=== PATIENT | male | born 1995 | race Hispanic/Latino ===

== ENCOUNTER 2018-11-30 00:24 | Emergency (ER) | payer OTHER, SELFPAY ==
[2018-11-30] MEDS ORDERED: TETANUS & DIPHTHERIA TOX,ADULT 0.5 ML VIAL ONE (00:43)
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
[2018-11-30] MEDS ORDERED: CEPHALEXIN 250 MG CAP ONE (04:01)
[2018-11-30 04:20] VITALS: O2SAT 99
[2018-11-30 04:26] VITALS: BP 119/72; TEMP 98
--- NOTE | 2018-11-30 08:35 | RAD REPORT ---
EXAM DESCRIPTION: RAD - Wrist Left 3 View - 11/30/2018 3:42 am CLINICAL HISTORY: Fall, left wrist pain COMPARISON: None. FINDINGS: No fracture is identified. There is no dislocation or periosteal reaction noted. No foreig n body or other soft tissue abnormality. IMPRESSION: Negative left wrist examination.
--- NOTE | 2018-11-30 08:36 | RAD REPORT ---
EXAM DESCRIPTION: RAD - Wrist Right 3 View - 11/30/2018 3:40 am CLINICAL HISTORY: Fall, right wrist pain COMPARISON: None. FINDINGS: No fracture is identified. Appearance of the scaphoid bone is not outside of normal range. There is no dislocation or periosteal reaction noted. Epiphyses and growth plates are Normal in appe arance. No foreign body or other soft tissue abnormality. IMPRESSION: Negative right wrist examination. Repeat imaging in 7 days could be performed if the patient has continued symptoms concerning for frac ture.
--- NOTE | 2018-11-30 12:35 | RAD REPORT ---
EXAM DESCRIPTION: CT - Head C Spine Mpr Wo Con - 11/30/2018 4:25 am CLINICAL HISTORY: The patient is 23 years old and is Male; fall TECHNIQUE: Axial computed tomography images of the head/brain and cervical spine without intravenous contrast. Sagittal and coronal reformatted images were created and reviewed. This CT exam was pe rformed using one or more of the following dose reduction techniques: automated exposure control, a djustment of the mA and/or kV according to patient size, and/or use of iterative reconstruction techn ique. COMPARISON: No relevant prior studies available. FINDINGS: BRAIN: Unremarkable. No hemorrhage. No significant white matter disease. No edema. VENTRICLES: Unremarkable. No ventriculomegaly. SKULL: No acute fracture. SINUSES: Unremarkable as visualized. No acute sinusitis. MASTOID AIR CELLS: Unremarkable as visualized. No mastoid effusion. VERTEBRAE: The vertebral body heights and alignment are maintained. No acute fracture. DISCS/SPINAL CANAL/NEURAL FORAMINA: The intervertebral disc spaces are maintained. No spinal can al stenosis. SOFT TISSUES: Right facial soft tissue swelling is present. LUNG APICES: The lung apices are clear. IMPRESSION: 1. No acute intracranial findings. 2. No fracture or malalignment of the cervical spine. Electronically signed by: Rosita Barboza MD 11/30/2018 1:53 AM CDT Due to temporary technical issues with the PACS/Fluency reporting system, reports are being signed by the in house radiologist as a courtesy to ensure prompt reporting. The interpreting radiologist is f ully responsible for the content of the report.
--- NOTE | 2018-11-30 12:36 | RAD REPORT ---
EXAM DESCRIPTION: CT - Thorax Terry Downs - 11/30/2018 4:24 am CLINICAL HISTORY: The patient is 23 years old and is Male; fall TECHNIQUE: Axial computed tomography images of the chest without intravenous contrast. Sagittal an d coronal reformatted images were created and reviewed. This CT exam was performed using one or mor e of the following dose reduction techniques: automated exposure control, adjustment of the mA and/ or kV according to patient size, and/or use of iterative reconstruction technique. COMPARISON: No relevant prior studies available. FINDINGS: LUNGS: The lungs are clear of focal opacity, mass, or consolidation. PLEURAL SPACE: Unremarkable. No pneumothorax. No significant effusion. HEART: No cardiomegaly. No pericardial effusion. BONES/JOINTS: No acute fractures the visualized axial and appendicular skeleton. Mild irregularity of the endplates is noted. SOFT TISSUES: The soft tissues are normal. VASCULATURE: Unremarkable. No thoracic aortic aneurysm. LYMPH NODES: Unremarkable. No enlarged lymph nodes. IMPRESSION: No evidence of solid organ injury or traumatic bony findings on this noncontrasted CT of the chest. Electronically signed by: Rosita Barboza MD 11/30/2018 1:45 AM CDT Due to temporary technical issues with the PACS/Fluency reporting system, reports are being signed by the in house radiologist as a courtesy to ensure prompt reporting. The interpreting radiologist is jackelyn pink responsible for the content of the report.
--- NOTE | 2018-11-30 12:38 | RAD REPORT ---
EXAM DESCRIPTION: CT - Facial Bones W/ Mpr - 11/30/2018 4:24 am CLINICAL HISTORY: The patient is 23 years old and is Male; fall TECHNIQUE: Axial computed tomography images of the face with intravenous contrast. Sagittal and co simba reformatted images were created and reviewed. This CT exam was performed using one or more of the following dose reduction techniques: automated exposure control, adjustment of the mA and/or k V according to patient size, and/or use of iterative reconstruction technique. COMPARISON: No relevant prior studies available. FINDINGS: BONES/JOINTS: The orbital floors and curiel are intact. The zygomatic arches and pteryg oid plates are intact. The visualized maxilla and mandible are intact. SOFT TISSUES: Right facial soft tissue swelling is present. ORBITS: The globes, extraocular muscles, and optic nerve complexes are within normal limits. SINUSES: The visualized paranasal sinuses are clear. No air-fluid levels. NASAL CAVITY/SEPTUM: The nasal bones are intact. IMPRESSION: Right facial soft tissue swelling without underlying acute bony abnormality. Electronically signed by: Rosita Barboza MD 11/30/2018 1:48 AM CDT Due to temporary technical issues with the PACS/Fluency reporting system, reports are being signed by the in house radiologist as a courtesy to ensure prompt reporting. The interpreting radiologist is f onesimoly responsible for the content of the report.
== END 2018-11-30 04:16 | disposition home or self-care (01) ==
LOC: ER 00:24
DX: S09.90XA Unspecified injury of head, initial encounter (principal); S01.81XA Laceration without foreign body of other part of head, initial encounter; S03.2XXA Dislocation of tooth, initial encounter; S60.812A Abrasion of left wrist, initial encounter; S60.811A Abrasion of right wrist, initial encounter; S80.212A Abrasion, left knee, initial encounter; S80.211A Abrasion, right knee, initial encounter; Y09 Assault by unspecified means; Y93.02 Activity, running; Y92.9 Unspecified place or not applicable; Z23 Encounter for immunization
CPT/HCPCS: 70450; 70486; 71250; 72125; 76377; 90714; 99285

== ENCOUNTER 2020-02-07 00:19 | Emergency (ER) | payer SELFPAY ==
--- OUTSIDE RECORDS SUMMARY | 2020-02-07 00:22 | XMS REPORT | Continuity of Care Document ---
:[address] [facility] t Address [address] [place] [address] Dr. Solitario [address] [place] [id number] Care Team Providers Name Role Phone Unavailable Unavailable Unavailable Problems This patient has no known problems. Allergies, Adverse Reactions, Alerts This patient has no known allergies or adverse reactions. Medications This patient has no known medications. Procedures This patient has no known procedures. Results This patient has no known results.
[2020-02-07 01:12] LABS: Urine Culture Reflex Order NOT NEEDED
[2020-02-07 01:13] LABS: Urine Blood 2+ (NEG); Urine Glucose NEGATIVE (NEG); Urine Protein 1+ (NEG); Urine Specific Gravity 1.025 (1.005-1.030)
[2020-02-07 01:14] LABS: Urine Bacteria <20 /HPF (NONE SEEN)
--- NOTE | 2020-02-07 01:51 | ER ---
Nurse's Notes [facility] Name: Chris Ibarra Age: 24 yrs Sex: Male : 1995 Arrival Date: 02/07/2020 Time: 00:21 Bed 4 Private MD: Diagnosis: Urethral discharge;Urinary tract infection, site not specified Presentation: 02/06 00:32 Chief complaint: Patient states: Urinating blood, first episode 30 min ago; States "it lp1 cochran"; States burning with urination the past 2 days, blood in urine today. Coronavirus screen: Patient denies a cough. Patient denies shortness of breath or difficulty breathing. Patient denies measured and/or subjective temperature greater than 100.4F prior to today's visit. Patient denies travel on a cruise ship or to a country the [facility] currently lists as an affected area. Patient denies contact with known and/or suspected case of COVID-19. Ebola Screen: No symptoms or risks identified at this time. Initial Sepsis Screen: Does the patient meet any 2 criteria? No. Patient's initial sepsis screen is negative. Does the patient have a suspected source of infection? No. Patient's initial sepsis screen is negative. Risk Assessment: Do you want to hurt yourself or someone else? Patient reports no desire to harm self or others. Onset of symptoms was February 07, 2020 at 00:00. 00:32 Method Of Arrival: Ambulatory lp1 00:32 Acuity: ERIC 4 lp1 Historical: - Allergies: 00:38 No Known Allergies; lp1 - Home Meds: 00:38 None [Active]; lp1 - PMHx: 00:38 None; lp1 - PSHx: 00:38 Reconstruction of intestine; lp1 - Immunization history:: Adult Immunizations up to date. - Social history:: Smoking status: Patient reports the use of cigarette tobacco products, denies chronic smoking, but will smoke occasionally. - Family history:: not pertinent. Screenin:38 Abuse screen: Denies threats or abuse. Denies injuries from another. Nutritional lp1 screening: No deficits noted. Tuberculosis screening: No symptoms or risk factors identified. Fall Risk None identified. Assessment: 01:30 General: Appears comfortable, Behavior is calm, cooperative. rv 01:30 Pain: Denies pain. Neuro: Level of Consciousness is awake, alert, obeys commands, rv Oriented to person, place, time, situation. Cardiovascular: Patient's skin is warm and dry. Respiratory: Airway is patent Respiratory effort is even, unlabored. : Reports burning with urination, urinary frequency. Derm: Skin is intact. Vital Signs: 00:32 BP 143 / 93; Pulse 85; Resp 18; Temp 98.4(O); Pulse Ox 100% on R/A; Weight 70.31 kg lp1 (R); Height 5 ft. 5 in. (165.10 cm); 00:32 Body Mass Index 25.79 (70.31 kg, 165.10 cm) lp1 ED Course: 00:21 Patient arrived in ED. cl3 00:37 Triage completed. lp1 00:38 Arm band placed on. lp1 00:39 Ilir Lees, DANIS is Primary Nurse. rv 01:14 Joby Muro MD is Attending Physician. francine 01:30 Patient has correct armband on for positive identification. Pulse ox on. NIBP on. rv 02:14 No provider procedures requiring assistance completed. Patient did not have IV access rv during this emergency room visit. Administered Medications: 02:13 Drug: Rocephin (cefTRIAXone) 1 grams Route: IM; Site: left deltoid; rv 02:13 Follow up: Response: Medication administered at discharge. rv 02:13 Drug: Zithromax 1 grams Route: PO; rv 02:13 Follow up: Response: Medication administered at discharge. rv 02:13 Drug: Doxycycline 100 mg Route: PO; rv 02:13 Follow up: Response: Medication administered at discharge. rv Outcome: 01:51 Discharge ordered by . francine 02:15 Discharged to home ambulatory. rv 02:15 Condition: good 02:15 Discharge instructions given to patient, Instructed on discharge instructions, follow up and referral plans. medication usage, Demonstrated understanding of instructions, follow-up care, medications, Prescriptions given X 2. 02:15 Patient left the ED. rv Signatures: Joby Muro MD MD cha Pena, Laura, RN RN lp1 Ilir Lees RN RN rv Lewis, Charde cl3
--- NOTE | 2020-02-07 01:51 | EDPHYS ---
Physician Documentation [facility] Name: Chris Ibarra Age: 24 yrs Sex: Male : 1995 Arrival Date: 02/07/2020 Time: 00:21 Bed 4 Private MD: Joby Hernandes HPI: 02/06 01:46 This 24 yrs old Male presents to ER via Ambulatory with complaints of francine Urinating Blood. 01:46 The patient presents with tenderness, urinary symptoms, dribbling of urine, dysuria, francine urinary frequency, constant. Onset: The symptoms/episode began/occurred 2 day(s) ago. Modifying factors: The symptoms are alleviated by nothing, the symptoms are aggravated by urinating, sexual intercourse. Associated signs and symptoms: The patient has no apparent associated signs or symptoms. The patient has not experienced similar symptoms in the past. Historical: - Allergies: 00:38 No Known Allergies; lp1 - Home Meds: 00:38 None [Active]; lp1 - PMHx: 00:38 None; lp1 - PSHx: 00:38 Reconstruction of intestine; lp1 - Immunization history:: Adult Immunizations up to date. - Social history:: Smoking status: Patient reports the use of cigarette tobacco products, denies chronic smoking, but will smoke occasionally. - Family history:: not pertinent. ROS: 01:46 Constitutional: Negative for fever, chills, and weight loss, Eyes: Negative for injury, francine pain, redness, and discharge, ENT: Negative for injury, pain, and discharge, Neck: Negative for injury, pain, and swelling, Cardiovascular: Negative for chest pain, palpitations, and edema, Respiratory: Negative for shortness of breath, cough, wheezing, and pleuritic chest pain, Abdomen/GI: Negative for abdominal pain, nausea, vomiting, diarrhea, and constipation, Back: Negative for injury and pain, MS/Extremity: Negative for injury and deformity, Skin: Negative for injury, rash, and discoloration, Neuro: Negative for headache, weakness, numbness, tingling, and seizure, Psych: Negative for depression, anxiety, suicide ideation, homicidal ideation, and hallucinations, Allergy/Immunology: Negative for hives, rash, and allergies, Endocrine: Negative for neck swelling, polydipsia, polyuria, polyphagia, and marked weight changes, Hematologic/Lymphatic: Negative for swollen nodes, abnormal bleeding, and unusual bruising. 01:46 : Positive for urinary symptoms, urinary frequency, hematuria, difficulty urinating, penile discharge, penile pain. Exam: 01:46 Constitutional: This is a well developed, well nourished patient who is awake, alert, francine and in no acute distress. Head/Face: Normocephalic, atraumatic. Eyes: Pupils equal round and reactive to light, extra-ocular motions intact. Lids and lashes normal. Conjunctiva and sclera are non-icteric and not injected. Cornea within normal limits. Periorbital areas with no swelling, redness, or edema. ENT: Nares patent. No nasal discharge, no septal abnormalities noted. Tympanic membranes are normal and external auditory canals are clear. Oropharynx with no redness, swelling, or masses, exudates, or evidence of obstruction, uvula midline. Mucous membranes moist. Neck: Trachea midline, no thyromegaly or masses palpated, and no cervical lymphadenopathy. Supple, full range of motion without nuchal rigidity, or vertebral point tenderness. No Meningismus. Chest/axilla: Normal chest wall appearance and motion. Nontender with no deformity. No lesions are appreciated. Cardiovascular: Regular rate and rhythm with a normal S1 and S2. No gallops, murmurs, or rubs. Normal PMI, no JVD. No pulse deficits. Respiratory: Lungs have equal breath sounds bilaterally, clear to auscultation and percussion. No rales, rhonchi or wheezes noted. No increased work of breathing, no retractions or nasal flaring. Abdomen/GI: Soft, non-tender, with normal bowel sounds. No distension or tympany. No guarding or rebound. No evidence of tenderness throughout. Back: No spinal tenderness. No costovertebral tenderness. Full range of motion. Skin: Warm, dry with normal turgor. Normal color with no rashes, no lesions, and no evidence of cellulitis. MS/ Extremity: Pulses equal, no cyanosis. Neurovascular intact. Full, normal range of motion. Neuro: Awake and alert, GCS 15, oriented to person, place, time, and situation. Cranial nerves II-XII grossly intact. Motor strength 5/5 in all extremities. Sensory grossly intact. Cerebellar exam normal. Normal gait. Psych: Awake, alert, with orientation to person, place and time. Behavior, mood, and affect are within normal limits. 01:46 : CVA tenderness, is absent, Male external genitalia: normal, Circumcision noted. penile discharge, purulent, Bladder: is normal, Sexual behavior: the patient is sexually active, and reports multiple partners. Vital Signs: 00:32 BP 143 / 93; Pulse 85; Resp 18; Temp 98.4(O); Pulse Ox 100% on R/A; Weight 70.31 kg lp1 (R); Height 5 ft. 5 in. (165.10 cm); 00:32 Body Mass Index 25.79 (70.31 kg, 165.10 cm) lp1 MDM: 01:15 Patient medically screened. francine 01:48 Data reviewed: vital signs, nurses notes, lab test result(s). Data interpreted: Cardiac francine monitor: not applicable for this patient encounter. Pulse oximetry: on room air is 100 %. Counseling: I had a detailed discussion with the patient and/or guardian regarding: the historical points, exam findings, and any diagnostic results supporting the discharge/admit diagnosis, lab results, the need for outpatient follow up, for definitive care, a family practitioner. Response to treatment: the patient's symptoms have mildly improved after treatment. ED course: sex with multiple girls, now with urethral dc. 02/06 00:49 Order name: Urine Microscopic Only lp1 02/06 00:49 Order name: Urine Culture lp1 02/06 00:50 Order name: Urine Microscopic Only; Complete Time: 01:44 EDMS 02/06 00:51 Order name: Urine Dipstick--Ancillary (enter results); Complete Time: 01:44 lp1 02/06 00:49 Order name: Urine Dipstick-Ancillary (obtain specimen); Complete Time: 00:51 lp1 Administered Medications: 02:13 Drug: Rocephin (cefTRIAXone) 1 grams Route: IM; Site: left deltoid; rv 02:13 Follow up: Response: Medication administered at discharge. rv 02:13 Drug: Zithromax 1 grams Route: PO; rv 02:13 Follow up: Response: Medication administered at discharge. rv 02:13 Drug: Doxycycline 100 mg Route: PO; rv 02:13 Follow up: Response: Medication administered at discharge. rv Disposition: 02/07/20 01:51 Discharged to Home. Impression: Urethral discharge, Urinary tract infection, site not specified. - Condition is Stable. - Discharge Instructions: Dysuria, Sexually Transmitted Disease, Sexually Transmitted Disease, Agch-qu-Uptx, Urinary Tract Infection, Adult, Urinary Tract Infection, Adult, [place]-ca-Puph, Safe Sex. - Prescriptions for Doxycycline Hyclate 100 mg Oral Tablet - take 1 tablet by ORAL route every 12 hours; 20 tablet. Cipro 500 mg Oral Tablet - take 1 tablet by ORAL route every 12 hours for 7 days; 14 tablet. - Medication Reconciliation Form, Thank You Letter, Antibiotic Education, Prescription Opioid Use form. - Follow up: Private Physician; When: 2 - 3 days; Reason: Recheck today's complaints, Continuance of care, Re-evaluation by your physician. - Problem is new. - Symptoms have improved. Signatures: Dispatcher [employer] EDJoby Benton MD MD cha Pena, Laura, RN RN lp1 Ilir Lees RN RN rv Corrections: (The following items were deleted from the chart) 02:15 01:51 02/07/2020 01:51 Discharged to Home. Impression: Urethral discharge; Urinary rv tract infection, site not specified. Condition is Stable. Forms are Medication Reconciliation Form, Thank You Letter, Antibiotic Education, Prescription Opioid Use. Follow up: Private Physician; When: 2 - 3 days; Reason: Recheck today's complaints, Continuance of care, Re-evaluation by your physician. Problem is new. Symptoms have improved. francine
[2020-02-07 02:19] VITALS: BP 143/93; TEMP 98.4; O2SAT 100
== END 2020-02-07 02:15 | disposition home or self-care (01) ==
LOC: ER 00:19
DX: N39.0 Urinary tract infection, site not specified (principal); R36.9 Urethral discharge, unspecified; F17.210 Nicotine dependence, cigarettes, uncomplicated
CPT/HCPCS: 81003; 81015; 87086; 87088; 96372; 99283

== ENCOUNTER 2021-03-28 16:19 | Emergency (ER) | payer SELFPAY ==
--- OUTSIDE RECORDS SUMMARY | 2021-03-28 16:21 | XMS REPORT | Continuity of Care Document ---
:1995 Author Organization [facility] t Address [address] [place] [address] Dr. Solitario [address] [place] [id number] Care Team Providers Name Role Phone Unavailable Unavailable Unavailable Problems This patient has no known problems. Allergies, Adverse Reactions, Alerts This patient has no known allergies or adverse reactions. Medications This patient has no known medications. Procedures This patient has no known procedures. Results This patient has no known results.
== END 2021-03-28 17:43 | disposition left against medical advice (07) ==
LOC: ER 16:19
DX: Z02.9 Encounter for administrative examinations, unspecified (principal)

== ENCOUNTER 2022-04-07 13:47 | Emergency (ER) | payer SELFPAY ==
--- OUTSIDE RECORDS SUMMARY | 2022-04-07 13:50 | XMS REPORT | Continuity of Care Document ---
:1995 Author Organization [facility] t Address [address] [place] [address] Dr. Solitario [address] [place] [address] Care Team Providers Name Role Phone Unavailable Unavailable Unavailable Problems This patient has no known problems. Allergies, Adverse Reactions, Alerts This patient has no known allergies or adverse reactions. Medications This patient has no known medications. Procedures This patient has no known procedures. Results This patient has no known results.
[2022-04-07 14:38] LABS: Urine Blood Negative (Negative); Urine Glucose Negative (Negative); Urine Protein 2+ (Negative)
[2022-04-07 15:03] LABS: Albumin 4.2 g/dL (3.4-5.0); Bilirubin Total 0.6 mg/dL (0.2-1.0); Potassium 3.6 mmol/L (3.5-5.1); Protein, Total 8.5 g/dL (6.4-8.2)
[2022-04-07] MEDS ORDERED: NA CHLORIDE 0.9% 1,000 ML ONE (15:27)
[2022-04-07] MEDS ORDERED: ONDANSETRON 4 MG/2 ML VIAL ONE (15:27)
--- NOTE | 2022-04-07 15:59 | RAD REPORT ---
EXAM DESCRIPTION: CTAbdomen Pelvis W Contrast - 04/07/2022 3:47 pm CLINICAL HISTORY: Abdominal pain. vomiting, abdominal pain COMPARISON: CT ABD PELVIS W CONTRAST dated 04/01/2009 TECHNIQUE: Biphasic CT imaging of the abdomen and pelvis was performed with 100 ml non-ionic IV cont rast. All CT scans are performed using dose optimization technique as appropriate and may include automated exposure control or mA/KV adjustment according to patient size. FINDINGS: The lung bases are clear. The liver demonstrates diffuse fatty infiltration. Spleen, pancreas, adrenal glands and kidneys are w ithin normal limits. No bowel obstruction, free air, free fluid or abscess. The appendix is normal. No evidence of signi ficant lymphadenopathy. No suspicious bony findings. IMPRESSION: No acute intra-abdominal or pelvic finding. Mild fatty liver.
[2022-04-07 16:10] LABS: Absolute Lymphocytes (CBC) 1.5 K/uL (0.7-4.9); Lymphocytes % 20.3 % (15.3-44.8); MCV 88.4 fL (80-100); MPV 8.9 fL (7.6-11.3); RBC Red Blood Cell Count 5.32 M/uL (4.33-5.43)
[2022-04-07] MEDS ORDERED: CEFTRIAXONE 1000 MG/VIAL ONE (16:52)
[2022-04-08 00:46] VITALS: BP 142/105; TEMP 97.1; O2SAT 100
--- NOTE | 2022-04-08 10:22 | ER ---
Nurse's Notes [facility] Name: Chris Ibarra Age: 26 yrs Sex: Male : 1995 Arrival Date: 04/07/2022 Time: 13:50 Bed 27 Private MD: Diagnosis: Vomiting;Diarrhea, unspecified Presentation: 04/07 13:59 Chief complaint: Patient states: epigastric pain since this morning, vomiting with 3 streaks of blood. 13:59 Method Of Arrival: Ambulatory [facility] 14:02 Coronavirus screen: Vaccine status: Patient reports being unvaccinated. Ebola Screen: [facility] No symptoms or risks identified at this time. Initial Sepsis Screen: Does the patient meet any 2 criteria? No. Patient's initial sepsis screen is negative. Does the patient have a suspected source of infection? No. Patient's initial sepsis screen is negative. Risk Assessment: Do you want to hurt yourself or someone else? Patient reports no desire to harm self or others. Onset of symptoms was April 07, 2022. 14:02 Acuity: ERIC 3 3 Triage Assessment: 14:05 General: Appears distressed, uncomfortable, Behavior is cooperative, appropriate for [facility] age, restless. Pain: Complains of pain in epigastric area Pain does not radiate. Pain currently is 10 out of 10 on a pain scale. Quality of pain is described as sharp, Pain began 1 day ago. Is intermittent. Neuro: Level of Consciousness is awake, alert, obeys commands, Oriented to person, place, time, situation. Cardiovascular: Capillary refill < 3 seconds Patient's skin is warm and dry. Respiratory: Airway is patent Respiratory effort is even, unlabored. GI: Abdomen is flat, non-distended, Reports upper abdominal pain, diarrhea, rectal bleeding, epigastric pain, tolerance of fluids, tolerance of food. : Reports inability to void, since yesterday. Historical: - Allergies: 14:04 No Known Allergies; 3 - Home Meds: 14:04 None [Active]; eh3 - PMHx: 14:04 None; 3 - PSHx: 14:05 abdominal surgery in 2009; 3 - Immunization history:: Adult Immunizations up to date. - Social history:: Smoking status: Patient reports the use of cigarette tobacco products, smokes one pack cigarettes per day. Patient uses alcohol, on a daily basis. street drugs, marijuana. Screenin:32 Abuse screen: Denies threats or abuse. Denies injuries from another. Nutritional quintana screening: No deficits noted. Tuberculosis screening: No symptoms or risk factors identified. Fall Risk None identified. Assessment: 15:32 General: Appears in no apparent distress. Behavior is calm, cooperative. GI: Abdomen is quintana non-distended, Bowel sounds present X 4 quads. Abd is soft and non tender Reports nausea, Pain is 6 out of 10 on a pain scale. Vital Signs: 14:02 BP 142 / 105; Pulse 88; Resp 18; Temp 97.1; Pulse Ox 100% on R/A; Weight 70.31 kg; eh3 Height 5 ft. 5 in. (165.10 cm); Pain 8/10; 14:02 Body Mass Index 25.79 (70.31 kg, 165.10 cm) 3 ED Course: 13:50 Patient arrived in ED. mr 13:56 Mehdi Mukherjee PA is PHCP. m 13:56 Joby Muro MD is Attending Physician. [facility] 14:04 Triage completed. 3 14:05 Arm band placed on right wrist. 3 14:10 Inserted saline lock: 20 gauge in right antecubital area, using aseptic technique. 3 Blood collected. 15:09 Ene Hall, RN is Primary Nurse. quintana 15:32 Patient has correct armband on for positive identification. Bed in low position. quintana 15:32 No provider procedures requiring assistance completed. quintana 15:49 CT Abd/Pelvis - IV Contrast Only In Process Unspecified. EDMS 17:50 IV discontinued, intact, Pressure dressing applied. quintana Administered Medications: 15:23 Drug: Zofran (Ondansetron) 4 mg Route: IVP; Site: right antecubital; quintana 15:23 Follow up: Response: No adverse reaction 15:23 Drug: NS 0.9% 1000 ml Route: IV; Rate: 1 bolus; Site: right antecubital; quintana 16:46 Drug: Rocephin (cefTRIAXone) 1 grams Route: IV; Rate: calculated rate; Site: right quintana antecubital; Medication: 15:32 VIS not applicable for this client. quintana Outcome: 17:42 Discharge ordered by . jm 17:50 Discharged to home ambulatory, with family. quintana 17:50 Condition: good 17:50 Discharge instructions given to patient, Prescriptions given X 1. 17:51 Patient left the ED. quintana Signatures: Dispatcher [employer] EDMehdi Smiley PA PA jmm Rivera, Mary mr Susan-MeganrEne RN RN Lizett Mortensen 3
--- NOTE | 2022-04-08 10:22 | EDPHYS ---
Physician Documentation [facility] Name: Chris Ibarra Age: 26 yrs Sex: Male : 1995 Arrival Date: 04/07/2022 Time: 13:50 Bed 27 Private MD: MILLIE Physician Joyb Muro HPI: 04/07 14:04 This 26 yrs old Male presents to ER via Ambulatory with complaints of m Abdominal Pain. 14:04 The patient presents with abdominal pain. Onset: The symptoms/episode began/occurred jmm gradually. The symptoms do not radiate. Associated signs and symptoms: Pertinent negatives: fever. The symptoms are described as achy. Modifying factors: The symptoms are alleviated by nothing, the symptoms are aggravated by. This is a 26 year old male with no chronic medical conditions presents emerged department with complaints of epigastric abdominal pain, vomiting and bloody bowel movements. Denies previous episodes in the past. denies known infectious exposure. Historical: - Allergies: 14:04 No Known Allergies; eh3 - Home Meds: 14:04 None [Active]; eh3 - PMHx: 14:04 None; eh3 - PSHx: 14:05 abdominal surgery in 2009; eh3 - Immunization history:: Adult Immunizations up to date. - Social history:: Smoking status: Patient reports the use of cigarette tobacco products, smokes one pack cigarettes per day. Patient uses alcohol, on a daily basis. street drugs, marijuana. ROS: 17:40 Constitutional: Negative for fever, chills, and weight loss, Cardiovascular: Negative jmm for chest pain, palpitations, and edema, Respiratory: Negative for shortness of breath, cough, wheezing, and pleuritic chest pain. 17:40 Abdomen/GI: Positive for abdominal pain, nausea and vomiting, diarrhea. 17:40 All other systems are negative. Exam: 17:40 Constitutional: This is a well developed, well nourished patient who is awake, alert, jmm and in no acute distress. Head/Face: atraumatic. Eyes: EOMI, no conjunctival erythema appreciated ENT: Moist Mucus Membranes Neck: Trachea midline, Supple Chest/axilla: Normal chest wall appearance and motion. Cardiovascular: Regular rate and rhythm. No edema appreciated Respiratory: Normal respirations, no respiratory distress appreciated Abdomen/GI: Non distended Back: Normal ROM Skin: General appearance color normal MS/ Extremity: Moves all extremities, no obvious deformities appreciated, no edema noted to the lower extremities Neuro: Awake and alert Psych: Behavior is normal, Mood is normal, Patient is cooperative and pleasant Vital Signs: 14:02 BP 142 / 105; Pulse 88; Resp 18; Temp 97.1; Pulse Ox 100% on R/A; Weight 70.31 kg; eh3 Height 5 ft. 5 in. (165.10 cm); Pain 8/10; 14:02 Body Mass Index 25.79 (70.31 kg, 165.10 cm) 3 MDM: 14:04 Patient medically screened. [facility] 17:41 Data reviewed: vital signs, nurses notes. Counseling: I had a detailed discussion with [facility] the patient and/or guardian regarding: the historical points, exam findings, and any diagnostic results supporting the discharge/admit diagnosis, lab results, radiology results, the need for outpatient follow up, to return to the emergency department if symptoms worsen or persist or if there are any questions or concerns that arise at home. ED course: Patient is alert nontoxic in appearance in the ED. CT negative. Patient states feeling much better.. Patient advised follow-up PCP and otherwise given strict return precautions. Patient understood and agrees plan of care.. 04/07 14:04 Order name: CBC with Diff; Complete Time: 16:23 [facility] 04/07 14:04 Order name: CMP; Complete Time: 15:04 [facility] 04/07 14:04 Order name: Lipase; Complete Time: 15:04 [facility] 04/07 14:38 Order name: Urine Dipstick-Ancillary; Complete Time: 14:53 [facility] 04/07 14:53 Order name: CT Abd/Pelvis - IV Contrast Only; Complete Time: 15:59 [facility] 04/07 14:04 Order name: IV Saline Lock; Complete Time: 14:10 [facility] 04/07 14:04 Order name: Labs collected and sent; Complete Time: 14:10 [facility] 04/07 14:04 Order name: Urine Dipstick-Ancillary (obtain specimen); Complete Time: 14:34 [facility] 04/07 16:23 Order name: PO challenge [facility] Administered Medications: 15:23 Drug: Zofran (Ondansetron) 4 mg Route: IVP; Site: right antecubital; quintana 15:23 Follow up: Response: No adverse reaction 15:23 Drug: NS 0.9% 1000 ml Route: IV; Rate: 1 bolus; Site: right antecubital; 16:46 Drug: Rocephin (cefTRIAXone) 1 grams Route: IV; Rate: calculated rate; Site: right quintana antecubital; Disposition Summary: 04/07/22 17:42 Discharge Ordered Location: Home jmm Condition: Stable jmm Diagnosis - Vomiting jmm - Diarrhea, unspecified jmm Followup: jmm - With: Private Physician - When: 2 - 3 days - Reason: Recheck today's complaints, Continuance of care, Re-evaluation by your physician Discharge Instructions: - Discharge Summary Sheet jmm - Food Choices to Help Relieve Diarrhea, Adult jmm - Diarrhea, Adult jmm - Vomiting, Adult jmm Forms: - Medication Reconciliation Form jmm - Thank You Letter jmm - Antibiotic Education jmm - Prescription Opioid Use jmm Prescriptions: - ondansetron 4 mg Oral tablet,disintegrating - take 1 tablet by ORAL route every 4-6 hours As needed; 20 tablet; Refills: 0, jmm Product Selection Permitted Signatures: Dispatcher [employer] EDMS Sravani Zavala Joel, PA PA jmm Ene Hall RN RN Lizett Mortensen [facility] Corrections: (The following items were deleted from the chart) 17:40 14:04 This is a 26 year old male with n. jmm jmm
== END 2022-04-07 17:51 | disposition home or self-care (01) ==
LOC: ER 13:47
DX: R11.2 Nausea with vomiting, unspecified (principal); R19.7 Diarrhea, unspecified; F17.210 Nicotine dependence, cigarettes, uncomplicated
CPT/HCPCS: 36415; 74177; 80053; 81003; 83690; 85025; J2405; J7030; Q9967

== ENCOUNTER 2024-12-02 13:08 | Emergency (ER) | payer SELFPAY ==
--- OUTSIDE RECORDS SUMMARY | 2024-12-02 13:11 | XMS REPORT | Continuity of Care Document ---
Author Name Unknown Address [address] [place] [address] [facility] Address [address] [place] [address] [place] [id number] Care Team Providers Care Occupational Health Nursing Director Name Role Phone Unavailable Unavailable Unavailable
[2024-12-02] MEDS ORDERED: TDAP (DIPHTH,PERTUSS(ACELL),TET VAC) 0.5 ML VIAL IMVAC ONE (13:38)
[2024-12-02] MEDS ORDERED: LIDOCAINE 1% 20 ML MDV ONE (13:38)
--- NOTE | 2024-12-02 14:46 | RAD REPORT ---
Exam: XR Forearm Right Clinical history: Swelling;Pain Technique: Radiographic views of the right forearm. Findings/ Impression: Transverse oblique fracture along the mid scaphoid. Well corticated osseous fragment at the tip of th e ulnar styloid. Swelling and irregularity along mid lateral forearm.
--- NOTE | 2024-12-02 15:01 | EDPHYS ---
Physician Documentation [facility] Name: Chris Ibarra Age: 29 yrs Sex: Male : 1995 Arrival Date: 12/02/2024 Time: 13:08 Bed 9 Private MD: ED Physician Yomaira Riddle Historical: - Allergies: 12/02 13:31 No Known Allergies; cm10 - Home Meds: 13:31 None [Active]; cm10 - PMHx: 13:31 None; cm10 - PSHx: 13:31 abdominal surgery in 2009; cm10 - Immunization history:: Adult Immunizations unknown, Last tetanus immunization: unknown. - Infectious Disease History:: Denies. - Social history:: Smoking status: Reported history of juuling and/or vaping. Vital Signs: 13:31 BP 132 / 102; Pulse 92; Resp 15; Temp 98.8; Pulse Ox 99% on R/A; Weight 81.65 kg; cm10 Height 5 ft. 5 in. ; 15:07 BP 125 / 86; Pulse 90; Resp 16; Temp 98.8(O); Pulse Ox 100% on R/A; Pain 0/10; le1 13:31 Body Mass Index 29.95 (81.65 kg, 165.1 cm) cm10 15:07 Pain Scale: Adult le1 Laceration: 16:57 Wound Repair of 7cm ( 2.8in ) subcutaneous laceration to dorsal aspect of left forearm. dr5 Irregularly shaped.. Skin/tissue flap noted.. Profuse bleeding noted.. Hemostasis noted.. Distal neuro/vascular/tendon intact. Anesthesia: Local anesthetic administered with 10 mls of 1% lidocaine w/ Epi. Wound prep: Extensive cleansing with hibiclenz by id, Wound irrigation with saline by id, Copious irrigation. Skin closed with 11 4-0 Prolene using simple sutures and sterile technique. Dressed with non-adherent dressing. Patient tolerated well. MDM: 13:11 Medical Screening Exam initiated dr5 12/02 13:29 Order name: Forearm Right XRAY; Complete Time: 14:47 dr5 12/02 13:29 Order name: Dressing - Wound; Complete Time: 13:58 dr5 12/02 13:29 Order name: Prolene, Sutures; Complete Time: 13:59 dr5 12/02 13:29 Order name: Setup Suture Tray; Complete Time: 13:59 dr5 12/02 14:47 Order name: Thumb Spica Splint; Complete Time: 15:01 dr5 Administered Medications: 13:53 Drug: Boostrix Tdap IM 0.5 ml IM once; as a single dose Route: IM; Site: right deltoid; cm10 13:58 Follow up: Response: No adverse reaction le1 13:58 Drug: Lidocaine Infiltration (1 %) 2 ml 20 ml Infiltration once; to bedside {Note: le1 administered by Erick JARA.} Volume: 20 ml; Route: Infiltration; Site: affected area; 13:58 Follow up: Response: No adverse reaction; Pain is decreased le1 Disposition Summary: 12/02/24 15:01 Discharge Ordered Notes: Location: Home dr5 Condition: Stable dr5 Diagnosis - Arm Laceration Right/Open wound forearm dr5 Followup: dr5 - With: Emergency Department - When: As needed - Reason: Worsening of condition Followup: dr5 - With: Private Physician - When: 1 - 2 days - Reason: Recheck today's complaints, Continuance of care, Re-evaluation by your physician Followup: dr5 - With: Rodolfo Gaspar MD - When: 1 week - Reason: Recheck today's complaints, Continuance of care, Re-evaluation by your physician Followup: dr5 - With: Ba Cunningham MD - When: 1 week - Reason: Recheck today's complaints, Continuance of care, Re-evaluation by your physician Discharge Instructions: - Discharge Summary Sheet dr5 - Scaphoid Fracture dr5 - Laceration Care, Adult, [id number] dr5 Forms: - Medication Reconciliation Form dr5 - Antibiotic Education dr5 - Patient Portal Instructions dr5 - Leadership Thank You Letter dr5 Prescriptions: - Cephalexin 500 mg Oral Capsule - take 1 capsule ORAL route every 12 hours for 10 days; 20 capsule; Refills: 0, dr5 Product Selection Permitted Addendum: 12/05/2024 23:01 Addendum: . d r5 Signatures: Dispatcher [employer] Edith Lockhart, RN RN cm10 César Devine RN RN le1 Erick Cat, LEAD INGOT MOLDER-C LEAD INGOT MOLDER-Cdr5 Corrections: (The following items were deleted from the chart) 12/02 16:59 16:57 Wound Repair of 7cm ( 2.8in ) subcutaneous laceration to dorsal aspect of left dr5 forearm. Irregularly shaped.. Skin/tissue flap noted.. Profuse bleeding noted.. Hemostasis noted.. Distal neuro/vascular/tendon intact. Anesthesia: Local anesthetic administered with 10 mls of 1% lidocaine w/ Epi. Wound prep: Extensive cleansing with hibiclenz by me, Wound irrigation with saline by me, Copious irrigation. Skin closed with 11 4-0 Prolene using simple sutures and sterile technique. Dressed with non-adherent dressing. Patient tolerated well. dr5 12/05 23: 23:01 Addendum: Patient is a 29-year-old male with no past with history coming in with dr5 laceration to right forearm after falling out on outstretched arm today. Patient does not know last tetanus injection. Patient cleaned wound prior to arrival with soap and water.. dr5 : 23:01 Addendum: Patient's wound was repaired as previously documented. I did place dr5 patient in thumb spica splint for fracture. CD and radiology report were printed and put with patient's discharge paperwork. Recommended patient follow-up with orthopedic in a week. Recommended alternating Tylenol Motrin as needed for pain. All questions answered.. dr5
--- NOTE | 2024-12-02 15:01 | ER ---
Nurse's Notes [facility] Name: Chris Ibarra Age: 29 yrs Sex: Male : 1995 Arrival Date: 12/02/2024 Time: 13:08 Bed 9 Private MD: Diagnosis: Arm Laceration Right/Open wound forearm Presentation: 12/02 13:31 Chief complaint: Patient states: laceration to right forearm onset last night. pt cm10 states he fell through window. unknown when last tetanus shot was. Coronavirus screen: Client denies travel out of the [place] in the last 14 days. Ebola Screen: No symptoms or risks identified at this time. Complicating Factors: There are no complicating factors for this patient. Initial Sepsis Screen: Does the patient have a suspected source of infection? No. Patient's initial sepsis screen is negative. Initial Sepsis Screen: Does the patient meet any 2 criteria? HR > 90 bpm. Risk Assessment: Do you want to hurt yourself or someone else? Patient reports no desire to harm self or others. Onset of symptoms was December 02, 2024. 13:31 Method Of Arrival: Ambulatory cm10 13:31 Acuity: ERIC 4 cm10 Triage Assessment: 13:34 General: Appears in no apparent distress. comfortable, Behavior is calm, cooperative. cm10 Neuro: No deficits noted. Level of Consciousness is awake, alert, obeys commands, Oriented to person, place, time, situation, Appropriate for age. Injury Description: Laceration sustained to right forearm is clean, 2.6 to 7.5 cm long, not bleeding, was sustained 12-24 hours ago. Historical: - Allergies: 13:31 No Known Allergies; cm10 - Home Meds: 13:31 None [Active]; cm10 - PMHx: 13:31 None; cm10 - PSHx: 13:31 abdominal surgery in 2009; cm10 - Immunization history:: Adult Immunizations unknown, Last tetanus immunization: unknown. - Infectious Disease History:: Denies. - Social history:: Smoking status: Reported history of juuling and/or vaping. Screenin:00 [facility] ED Fall Risk Assessment (Adult) History of falling in the last 3 months, le1 including since admission No falls in past 3 months (0 pts) Confusion or Disorientation No (0 pts) Intoxicated or Sedated No (0 pts) Impaired Gait No (0 pts) Mobility Assist Device Used No (0 pt) Altered Elimination No (0 pt) Score/Fall Risk Level 0 - 2 = Low Risk Oriented to surroundings, Maintained a safe environment, Educated pt \T\ family on fall prevention, incl call for assistance when getting out of bed, Assessed \T\ reinforced patient's understanding of fall precautions, Hourly rounding (assess needs \T\ fall precautionary measures) done, Used ambulatory aids as needed (educated on \T\ assisted with). Abuse screen: Denies threats or abuse. Denies injuries from another. Nutritional screening: No deficits noted. Tuberculosis screening: No symptoms or risk factors identified. Assessment: 13:59 General: Appears in no apparent distress. uncomfortable. Pain: Complains of pain in le1 palmar aspect of right forearm. Neuro: No deficits noted. Cardiovascular: No deficits noted. Respiratory: No deficits noted. GI: No deficits noted. : No deficits noted. EENT: No deficits noted. Derm: Wound noted palmar aspect of right forearm Wound is laceration. Musculoskeletal: No deficits noted. Injury Description: Laceration sustained to palmar aspect of right forearm is bleeding a small amount. Vital Signs: 13:31 BP 132 / 102; Pulse 92; Resp 15; Temp 98.8; Pulse Ox 99% on R/A; Weight 81.65 kg; cm10 Height 5 ft. 5 in. ; 15:07 BP 125 / 86; Pulse 90; Resp 16; Temp 98.8(O); Pulse Ox 100% on R/A; Pain 0/10; le1 13:31 Body Mass Index 29.95 (81.65 kg, 165.1 cm) cm10 15:07 Pain Scale: Adult le1 ED Course: 13:10 Patient arrived in ED. mr 13:11 Erick Cat, [facility]. dr5 13:11 Yomaira Riddle MD is Attending Physician. dr5 13:33 Triage completed. cm10 13:34 Arm band placed on right wrist. Patient placed in an exam room, on a stretcher. cm10 13:51 César Devine, RN is Primary Nurse. le1 14:01 Patient has correct armband on for positive identification. Bed in low position. Call le1 light in reach. Provided Education on: informed to use call light if needing assistance. 14:06 Forearm Right XRAY In Process Unspecified. EDMS 15:00 Rodolfo Gaspar MD is Referral Physician. dr5 15:00 Ba Cunningham MD is Referral Physician. dr5 15:01 Velcro wrist splint applied to right wrist. le1 15:07 No provider procedures requiring assistance completed. Patient did not have IV access le1 during this emergency room visit. Administered Medications: 13:53 Drug: Boostrix Tdap IM 0.5 ml IM once; as a single dose Route: IM; Site: right deltoid; cm10 13:58 Follow up: Response: No adverse reaction le1 13:58 Drug: Lidocaine Infiltration (1 %) 2 ml 20 ml Infiltration once; to bedside {Note: le1 administered by Erick JARA.} Volume: 20 ml; Route: Infiltration; Site: affected area; 13:58 Follow up: Response: No adverse reaction; Pain is decreased le1 Medication: 14:01 Vaccine Information Statement (VIS) provided today. Questions and/or concerns le1 addressed. VIS edition date: April 11, 2021. Outcome: 15:01 Discharge ordered by . dr5 15:07 Discharged to home ambulatory, le1 15:07 Condition: good 15:07 Discharge instructions given to patient, Instructed on discharge instructions, follow up and referral plans. medication usage, Demonstrated understanding of instructions, follow-up care, medications, Prescriptions given X 1, 15:08 Patient left the ED. le1 Signatures: Dispatcher [employer] EDLA Penelope Zepeda, Edith Givens RN RN cm10 César Devine RN RN le1 Erick Cat, ESTEFANI-C FAMILY NURSE PRACTITIONER-Cdr5
[2024-12-02 15:12] VITALS: TEMP 98.8
[2024-12-02 15:13] VITALS: BP 125/86; O2SAT 100
== END 2024-12-02 15:08 | disposition home or self-care (01) ==
LOC: ER 13:08
DX: S51.812A Laceration without foreign body of left forearm, initial encounter (principal); W25.XXXA Contact with sharp glass, initial encounter
CPT/HCPCS: 12032; 96372; 99284; J2003

== ENCOUNTER 2024-12-19 10:18 | Emergency (ER) | payer SELFPAY ==
--- OUTSIDE RECORDS SUMMARY | 2024-12-19 10:20 | XMS REPORT | Continuity of Care Document ---
Author Name Unknown Address [address] [place] [address] [place] [address] [address] [place] [address] Care Team Providers Care Headlight Adjuster Name Role Phone Unavailable Unavailable Unavailable
--- NOTE | 2024-12-19 10:33 | EDPHYS ---
Physician Documentation [facility] Name: Chris Ibarra Age: 29 yrs Sex: Male : 1995 Arrival Date: 12/19/2024 Time: 10:18 Bed 12 Private MD: ED Physician Can Laws HPI: 12/19 10:33 This 29 yrs old Male presents to ER via Ambulatory with complaints of Suture rt Removal. 10:33 Patient presents to the ED about 10 days following suturing of the laceration. Reports rt that there are 3 sutures to his forearm, states that is healing well, denies any issues with the wound. Symptoms are moderate severity, no other aggravating elevating factors.. Historical: - Allergies: 10:27 No Known Allergies; ss - PSHx: 10:27 abdominal surgery in 2009; ss - Family history:: not pertinent. ROS: 10:33 Constitutional: Negative for fever, chills, and weight loss, rt 10:33 Neuro: Negative for headache, weakness, numbness, tingling, and seizure, 10:33 MS/extremity: Positive for Sutured laceration, Exam: 10:33 Constitutional: This is a well developed, well nourished patient who is awake, alert, rt and in no acute distress. Skin: Warm, dry with normal turgor. Normal color with no rashes, no lesions, and no evidence of cellulitis. Neuro: Awake and alert, GCS 15, oriented to person, place, time, and situation. Cranial nerves II-XII grossly intact. Motor strength 5/5 in all extremities. Sensory grossly intact. Cerebellar exam normal. Normal gait. 10:33 Musculoskeletal/extremity: Sutured laceration with 3 sutures noted to the right forearm, appears to be well-healing, no surrounding erythema, purulence. Vital Signs: 10:25 Pulse 89; Resp 16; Temp 98(TE); Pulse Ox 98% on R/A; Pain 0/10; ss 10:27 BP 135 / 89; ss 10:25 Pain Scale: Adult ss Procedures: 10:33 Suture/Staple removal: Removed 3 sutures, from dorsal aspect of right forearm, site rt appears well healed, Patient tolerated well. MDM: 10:28 Medical Screening Exam initiated rt 10:33 Data reviewed: vital signs, nurses notes. Counseling: I had a detailed discussion with rt the patient and/or guardian regarding the historical points, exam findings, and any diagnostic results supporting the discharge/admit diagnosis, the need for outpatient follow up, to return to the emergency department if symptoms worsen or persist or if there are any questions or concerns that arise at home. Response to treatment: the patient's symptoms have markedly improved after treatment. Administered Medications: No medications were administered Disposition Summary: 12/19/24 10:33 Discharge Ordered Notes: Location: Home rt Problem: new rt Symptoms: have improved rt Condition: Stable rt Diagnosis - Encounter for removal of sutures rt Followup: rt - With: Private Physician - When: 2 - 3 days - Reason: Discharge Instructions: - Discharge Summary Sheet rt - Suture Removal, Care After rt Forms: - Medication Reconciliation Form rt - Antibiotic Education rt - Prescription Opioid Use rt - Patient Portal Instructions rt - Leadership Thank You Letter rt Signatures: Karina Munson, DANIS RN ss Can Laws MD MD rt
--- NOTE | 2024-12-19 10:33 | ER ---
Nurse's Notes [facility] Name: Chris Ibarra Age: 29 yrs Sex: Male : 1995 Arrival Date: 12/19/2024 Time: 10:18 Bed 12 Private MD: Diagnosis: Encounter for removal of sutures Presentation: 12/19 10:26 Chief complaint: Patient states: Here to have sutures removed from R Forearm. Sutures ss placed approximately 10 days ago. Coronavirus screen: Client denies travel out of the [place] in the last 14 days. Ebola Screen: Patient denies exposure to infectious person. Patient denies travel to an Ebola-affected area in the 21 days before illness onset. Initial Sepsis Screen: Does the patient meet any 2 criteria? No. Patient's initial sepsis screen is negative. Does the patient have a suspected source of infection? No. Patient's initial sepsis screen is negative. Risk Assessment: Do you want to hurt yourself or someone else? Patient reports no desire to harm self or others. Onset of symptoms was December 09, 2024. 10:26 Method Of Arrival: Ambulatory ss 10:26 Acuity: ERIC 5 ss Historical: - Allergies: 10:27 No Known Allergies; ss - PSHx: 10:27 abdominal surgery in 2009; ss - Family history:: not pertinent. Screenin:42 Abuse screen: Denies threats or abuse. Denies injuries from another. Nutritional ss screening: No deficits noted. Tuberculosis screening: Never had TB. Assessment: 10:42 General: Appears in no apparent distress. comfortable, Behavior is calm, cooperative, ss Denies fever, feeling ill, fatigue, chills. Neuro: Level of Consciousness is awake, alert, obeys commands, Oriented to person, place, time, situation. Respiratory: Airway is patent Respiratory effort is even, unlabored, Respiratory pattern is regular, symmetrical. Derm: Skin is pink, warm \T\ dry. normal. Vital Signs: 10:25 Pulse 89; Resp 16; Temp 98(TE); Pulse Ox 98% on R/A; Pain 0/10; ss 10:27 BP 135 / 89; ss 10:25 Pain Scale: Adult ss ED Course: 10:20 Patient arrived in ED. im 10:22 Can Laws MD is Attending Physician. rt 10:25 Arm band placed on left wrist. ss 10:27 Triage completed. ss 10:27 Karina Munson, RN is Primary Nurse. ss 10:42 Patient has correct armband on for positive identification. Bed in low position. ss 10:42 No provider procedures requiring assistance completed. Patient did not have IV access ss during this emergency room visit. Removal of Removed sutures from dorsal aspect of right forearm Suture site is well healed Patient tolerated well. Administered Medications: No medications were administered Medication: 10:42 VIS not applicable for this client. ss Outcome: 10:33 Discharge ordered by . rt 10:42 Discharged to home ambulatory, ss 10:42 Condition: good 10:42 Discharge instructions given to patient, Instructed on discharge instructions, follow up and referral plans. Demonstrated understanding of instructions, follow-up care, 10:44 Patient left the ED. ss Signatures: Karina Munson RN RN Can Laws MD MD rt Adriana Frost im Corrections: (The following items were deleted from the chart) 10:27 10:26 Acuity: ERIC 4 ss ss
[2024-12-19 10:49] VITALS: TEMP 98; O2SAT 98
[2024-12-19 10:50] VITALS: BP 135/89
== END 2024-12-19 10:44 | disposition home or self-care (01) ==
LOC: ER 10:18
DX: Z48.02 Encounter for removal of sutures (principal)